=== PATIENT | male | born 1970 | race African-American/Black ===

== ENCOUNTER → 2016-08-09 | Outpatient (CLI) | payer OTHER ==
--- NOTE | 2016-08-09 12:32 | REP ---
MRI LEFT HIP: TECHNIQUE: Coronal T1, STIR through the pelvis, T2 fat sat, left hip all three planes, axial oblique proton density fat sat left hip. There is severe degenerative changes at the left hip. There is severe joint space narrowing with deepening of the acetabular fossa. There is moderate spurring. Subchondral marrow edema and cystic changes are seen in the acetabulum. There is signal abnormalities in the femoral head compatible with avascular necrosis. There is flattening of the femoral head. Small subchondral cysts are seen in the femoral head. There is a small joint effusion. There is a tear of the anterior labrum and superior labrum. There is no paralabral cyst or surrounding fluid collection. Other surrounding soft tissues appear unremarkable. There appear to be mild arthritic changes at the right hip joint. Visualized intrapelvic structures are unremarkable. 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 There is deepening of the acetabular fossa and flattening of the femoral head. There is a small joint effusion. There are tears of the anterior and superior labrum. Signed by Henry Valderrama MD 08/09/2016 04:16 P
== END ==
LOC: M RAD 09:14
PROVIDERS: ATTEND Surgery
DX: S73.192A Other sprain of left hip, initial encounter (principal); M87.052 Idiopathic aseptic necrosis of left femur; M25.452 Effusion, left hip; M16.12 Unilateral primary osteoarthritis, left hip; X58.XXXA Exposure to other specified factors, initial encounter; Y93.9 Activity, unspecified; Y92.9 Unspecified place or not applicable; Y99.8 Other external cause status